=== PATIENT | male | born 1990 | race Caucasian/White ===

== ENCOUNTER 2023-04-25 08:23 | Day surgery (SDC) | payer OTHER ==
[~2023-04-25] VITALS: Ht 182.9 cm; Wt 101.4 kg
[~2023-04-25 08:23] MED LIST: BUPR100ER PO; CYMBALTA30 M1 PO
--- NOTE | 2023-04-25 08:55 | NUR ---
Ambulatory in Day Surgery. History, Chart, Medications and Allergies reviewed before start of procedure. Lungs clear T/O to Auscultation. Patient confirms NPO status and agrees with scheduled surgery. Pre-Op teaching done. Pt verbalizes understanding. Patient States Post-Procedure ride home has been arranged. PT GLASSES TAKEN TO PACU FOR SAFEKEEPING.
--- NOTE | 2023-04-25 09:04 | NUR ---
PT PHONE TAKEN TO PACU FOR SAFEKEEPING. PT OTHER BELONGINGS PLACED UNDERNEATH [place] FOR SAFEKEEPING.
[2023-04-25 09:05] VITALS: BP 140/90
[2023-04-25 10:05] VITALS: BP 139/80
[2023-04-25 10:10] VITALS: BP 142/95
[2023-04-25 10:15] VITALS: BP 140/91
[2023-04-25 10:25] VITALS: BP 141/95
[2023-04-25 10:30] VITALS: BP 143/98
--- NOTE | 2023-04-25 10:47 | NUR ---
Patient up to Ambulate independently. Gait steady. Discharge instructions reviewed with patient. Patient verbalizes understanding. Copy given to patient to take home. Patient States Post-Procedure ride home has been arranged. Dressing in place to retum area. Discharged via wheelchair to private car for ride home.
== END 2023-04-25 10:40 | disposition home or self-care (01) ==
LOC: ORSCMMR 08:23
PROVIDERS: Surgery
PROC: 0JB90ZZ Excision of Buttock Subcutaneous Tissue and Fascia, Open Approach (ICD-10-PCS; principal; 2023-04-25 08:45)
DX: L05.91 Pilonidal cyst without abscess (principal); F32.A Depression, unspecified; F17.290 Nicotine dependence, other tobacco product, uncomplicated; Z79.899 Other long term (current) drug therapy
CPT/HCPCS: 88305; J0690; J1100; J1885; J2405; J2704; J2795; J3010; J7120